=== PATIENT | male | born 1990 | race American Indian/Alaskan Native ===

== ENCOUNTER 2016-08-30 17:56 | Emergency (ER) | payer SELFPAY ==
[2016-08-30 18:47] VITALS: BP 128/83
--- NOTE | 2016-09-01 07:08 | ED Elopement Review ---
ED Pt Elopement review - Call Back decision Pt Call Back Decision: No action required
== END 2016-08-30 21:30 | disposition left against medical advice (07) ==
LOC: ED 17:56
DX: R30.0 Dysuria (principal); Z53.21 Procedure and treatment not carried out due to patient leaving prior to being seen by health care provider